=== PATIENT | female | born 1955 | race Caucasian/White ===

== ENCOUNTER 2024-04-28 20:32 | Emergency (ER) | payer MEDICARE, BC ==
[~2024-04-28] VITALS: Ht 157.5 cm; Wt 68.0 kg
[2024-04-28] MEDS ORDERED: ACET-683 PO (20:47)
[2024-04-28 21:43] LABS: RSV AMPLIFICATION NEGATIVE (NEGATIVE)
[2024-04-28 22:21] LABS: BASO % 0.2 % (0.0-1.0); EOS # 0.1 10^3/uL (0.0-0.5); EOS % 0.9 % (0.0-3.0); HEMATOCRIT 37.2 % (36.0-47.0); HEMOGLOBIN 12.2 g/dl (12.0-15.5); LYMPH # 1.4 10^3/uL (1.5-5.0); LYMPH % 12.5 % (24.0-44.0); MEAN CORPUSCULAR HEMOGLOBIN 29.5 pg (27.0-33.0); MEAN CORPUSCULAR HGB CONC 32.8 g/dl (32.0-36.5); MEAN CORPUSCULAR VOLUME 89.9 fl (80.0-96.0); MONO # 1.3 10^3/uL (0.0-0.8); MONO % 11.9 % (2.0-8.0); NEUTROPHILS # 8.2 10^3/uL (1.5-8.5); NEUTROPHILS % 74.2 % (36.0-66.0); PLATELET COUNT, AUTOMATED 191 10^3/uL (150-450); RED BLOOD COUNT 4.14 10^6/uL (4.00-5.40); WHITE BLOOD COUNT 11.1 10^3/uL (4.0-10.0)
[2024-04-28 22:47] LABS: BLOOD UREA NITROGEN 20 MG/DL (9-23); CALCIUM LEVEL 9.2 MG/DL (8.3-10.6); CARBON DIOXIDE LEVEL 25 MMOL/L (20-31); CHLORIDE LEVEL 104 MMOL/L (98-107); GLOMERULAR FILTRATION RATE 52.7 (>45); GLUCOSE, FASTING 104 MG/DL (74-106); POTASSIUM SERUM 4.5 MMOL/L (3.5-5.1); SODIUM LEVEL 133 MMOL/L (136-145)
[2024-04-28 22:48] LABS: CK-MB VALUE MASS < 1.0 NG/ML (<3.6)
[2024-04-28 22:49] LABS: CPK CREATINE PHOSPHOKINASE 95 U/L (34-145); MB/CK RELATIVE INDEX 1.05 (< OR =4)
[2024-04-29 00:04] LABS: CK-MB VALUE MASS < 1.0 NG/ML (<3.6)
[2024-04-29 00:05] LABS: CPK CREATINE PHOSPHOKINASE 90 U/L (34-145); MB/CK RELATIVE INDEX 1.11 (< OR =4)
[2024-04-29] MEDS ORDERED: ISOVUE-370 76% 100ML VIAL As Ordered ONE (00:21)
[2024-04-29] MEDS: ACETAMINOPHEN *IV* 1,000 MG in IV 1 EA IV ONE (01:43)
[2024-04-29] MEDS: AZITHROMYCIN 250MG TABLET PO ONE (01:43)
[2024-04-29 02:00] VITALS: BP 124/57; TEMP 97.4
[2024-04-29] MEDS ORDERED: PRED20TA PO (02:36)
[2024-04-29] MEDS ORDERED: AZIT-12 PO (02:36)
[2024-04-29 02:54] VITALS: O2SAT 96
== END 2024-04-29 03:03 | disposition home or self-care (01) ==
LOC: M ED 20:32
DX: R09.1 Pleurisy (principal); I31.39 Other pericardial effusion (noninflammatory); F41.9 Anxiety disorder, unspecified; F90.9 Attention-deficit hyperactivity disorder, unspecified type; Z85.3 Personal history of malignant neoplasm of breast; Z88.0 Allergy status to penicillin; Z88.6 Allergy status to analgesic agent
CPT/HCPCS: 71045; 71275; 80048; 82550; 82553; 84484; 85025; 87486; 87581; 87631; 87633; 87798; 87880; 93005; 93041; 94760; 96365; 99285; J0131; Q9967